=== PATIENT | female | born 2000 | race Caucasian/White ===

== ENCOUNTER 2025-01-20 22:02 | Emergency (ER) | payer SELFPAY ==
[2025-01-20] MEDS ORDERED: ONDANSETRON 4 MG/2 ML VIAL ONE (23:10)
[2025-01-20] MEDS ORDERED: FAMOTIDINE 20 MG/2 ML VIAL IV ONE (23:10)
[2025-01-20] MEDS ORDERED: NA CHLORIDE 0.9% 3,000 ML ONE (23:11)
[2025-01-20 23:22] LABS: Absolute Lymphocytes (CBC) 4.3 K/uL (0.7-4.9); Hematocrit 39.0 % (36.0-45.0); Hemoglobin 12.9 g/dL (12.0-15.0); MCH 27.5 pg (27.0-35.0); MCHC 33.2 g/dL (32.0-36.0); MCV 83.0 fL (80-100); MPV 9.8 fL (7.6-11.3); Nucleated RBC Absolute Count 0.0 (0-0); Nucleated Red Blood Cells % 0.1 % (0-0); RBC Red Blood Cell Count 4.70 M/uL (3.86-4.86); White Blood Count 7.80 thou/uL (4.3-10.9)
[2025-01-20 23:24] LABS: PT Prothrombin Time 15.9 SECONDS (10-13.0); PTT, Activated Partial Thromb 33.0 SECONDS (27.2-37.4); Protime INR 1.42
[2025-01-20 23:36] LABS: ALT/SGPT 57 U/L (13-56); AST/SGOT 36 U/L (15-37); Albumin 3.2 g/dL (3.4-5.0); Albumin/Globulin Ratio 0.8 (1.1-1.8); Alkaline Phosphatase 68 U/L (45-117); Anion Gap 11.7 mEq/L (5.0-15.0); BUN Blood Urea Nitrogen 6 mg/dL (7-18); Globulin 4.2 g/dL (2.3-3.5); Glucose Level 106 mg/dL (74-106); NT PRO-BNP 13 pg/mL (<125); Potassium 3.7 mEq/L (3.5-5.1)
[2025-01-20 23:40] LABS: Influenza A Ag Negative; Influenza B Ag Negative; SARS-CoV-2 Antigen Rapid Res Negative (Negative)
[2025-01-20 23:44] LABS: Troponin High Sensitivity < 3.0 pg/mL (<58.9)
[2025-01-21 00:14] LABS: Differential Total Cells Count 100; Segmented Neutrophils 16 % (40-80)
[2025-01-21 00:15] LABS: Blood Morphology Comment NOT SEEN (NOT SEEN)
--- NOTE | 2025-01-21 01:10 | RAD REPORT ---
CLINICAL HISTORY: Abdominal pain. COMPARISON: None. TECHNIQUE: CT ABDOMEN PELVIS WITH IV CONTRAST on 01/20/2025 11:18 PM CDT This exam was performed according to our departmental dose-optimization program, which includes autom ated exposure control, adjustment of the mA and/or kV according to patient size and/or use of iterative reconstruction technique. FINDINGS: Lower lungs are clear. Abdomen: The liver is normal in appearance. There is no biliary dilatation. Gallbladder is normal in appearance. Spleen is enlarged at at least 15.4 cm. Pancreas is unremarkable. The adrenal glands and kidneys are unremarkable. Abdominal aorta is normal in course and caliber without aneurysm. There is no free air. There is no r etroperitoneal adenopathy. Pelvis: There is no bowel obstruction. Urinary bladder is unremarkable. There is no free fluid. Uteru s is normal in size. Appendix is normal. Skeleton: There are no acute osseous findings. No suspicious bony lesions. IMPRESSION: Splenomegaly. No acute inflammatory process. Electronically signed by: Bran Alamo MD 01/21/2025 12:54 AM CDT RP Due to temporary technical issues with the PACS/GetO2 reporting system, reports are being kylah d by the in-house radiologist without review as a courtesy to ensure prompt reporting the interpreting radiologist is fully responsible for the content of the report. Transcribed Date/Time: 01/21/2025 1:10 AM
[2025-01-21 01:41] LABS: Urine Culture Reflex Order NOT NEEDED; Urine Microscopic Reflex YN ORDER UMIC
--- NOTE | 2025-01-21 02:07 | EDPHYS ---
Physician Documentation [facility] Name: Robyn Chen Age: 24 yrs Sex: Female : 2000 Arrival Date: 01/20/2025 Time: 22:02 Bed 20 Private MD: ED Physician Brandon Morales HPI: 01/20 22:45 This 24 yrs old Female presents to ER via Ambulatory with complaints of Nausea/Vomiting.cp 22:45 The patient presents to the emergency department with nausea, that is moderate, cp vomiting, that is continuous, abdominal pain, of the mid abdomen. Onset: The symptoms/episode began/occurred 2 week(s) ago. 22:45 Possible causes: unknown. cp 22:45 Associated signs and symptoms: Pertinent positives: cough, 2 episodes of diarrhea. cp Severity of symptoms: in the emergency department the symptoms are unchanged despite home interventions. 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 - Infectious Disease History:: Denies. - Social history:: Smoking status: Patient denies any tobacco usage or history of. Patient/guardian denies using alcohol, street drugs. ROS: 22:50 Constitutional: Positive for body aches, fever, poor PO intake, cp 22:50 Eyes: Negative for injury, pain, redness, and discharge, cp 22:50 ENT: Negative for drainage from ear(s), ear pain, sore throat, difficulty swallowing, difficulty handling secretions, 22:50 Respiratory: Negative for cough, shortness of breath, wheezing, 22:50 Abdomen/GI: Positive for abdominal pain, nausea and vomiting, anorexia, Negative for diarrhea, constipation, hematemesis, 22:50 Skin: Negative for cellulitis, rash, 22:50 Neuro: Negative for altered mental status, cp 22:50 All other systems are negative, cp Exam: 22:55 Constitutional: The patient appears in no acute distress, alert, awake, cp non-diaphoretic, non-toxic, well developed, well nourished, obese, uncomfortable, 22:55 Head/Face: Normocephalic, atraumatic. cp 22:55 Eyes: Periorbital structures: appear normal, Conjunctiva: normal, no exudate, no injection, Sclera: no appreciated abnormality, Lids and lashes: appear normal, bilaterally, 22:55 ENT: External ear(s): are unremarkable, Nose: is normal, Mouth: Lips: moist, Oral mucosa: moist, Posterior pharynx: Airway: no evidence of obstruction, patent, Tonsils: surgically absent, erythema, that is mild, exudate, is not appreciated, Voice: is normal, 22:55 Neck: ROM/movement: Meningeal signs: are not present, nuchal rigidity, is not appreciated, 22:55 Chest/axilla: Inspection: normal, 22:55 Cardiovascular: Rate: tachycardic, Rhythm: regular, 22:55 Respiratory: the patient does not display signs of respiratory distress, Respirations: normal, no use of accessory muscles, no retractions, labored breathing, is not present, Breath sounds: are clear throughout, no decreased breath sounds, no stridor, no wheezing, 22:55 Abdomen/GI: Inspection: obese Bowel sounds: active, all quadrants, Palpation: soft, in all quadrants, moderate abdominal tenderness, in the epigastric area, 23:27 ECG was reviewed by the Attending Physician. cp Vital Signs: 22:29 BP 86 / 45; Pulse 118; Resp 19 S; Temp 103(O); Pulse Ox 98% on R/A; Weight 95.25 kg lg3 (R); Height 5 ft. 0 in. (R); 23:27 BP 106 / 73; Pulse 105; Resp 20; Pulse Ox 98% on R/A; kj2 23:46 BP 102 / 75; Pulse 101; Resp 20; Pulse Ox 100% on R/A; kj2 01/21 00:40 BP 102 / 63; Pulse 100; Resp 19 S; Pulse Ox 99% on R/A; lg3 02:07 BP 92 / 57; Pulse 95; Resp 16; Temp 97.9; Pulse Ox 97% ; ts3 01/20 22:29 Body Mass Index 41.01 (95.25 kg, 152.4 cm) lg3 MDM: 01/20 22:28 Medical Screening Exam initiated cp 23:00 Differential diagnosis: gastritis, cholecystitis, appendicitis, viral gastroenteritis, cp gastroenteritis, sepsis, colitis. 01/21 00:35 ED course: awaiting urine results and results CT abdomen/pelvis for source of cp infection. 30 cc/kg fluid bolus given and HR improved, blood pressure improved. Patient positive for [place], current source of fever and infection. Will hold antibiotics until urine and CT results. 01:53 Data reviewed: vital signs, nurses notes, lab test result(s), EKG, radiologic studies, cp CT scan, plain films. I considered the following discharge prescriptions or medication management in the emergency department Medications were administered in the Emergency Department. See MAR. Independent interpretation of the following test(s) in the Emergency Department EKG: See my EKG interpretation above. Response to treatment: the patient's symptoms have markedly improved after treatment, nausea markedly improved and vomiting resolved. 01:53 Counseling: I had a detailed discussion with the patient and/or guardian regarding the cp historical points, exam findings, and any diagnostic results supporting the discharge/admit diagnosis, lab results, radiology results, to return to the emergency department if symptoms worsen or persist or if there are any questions or concerns that arise at home. 01/20 22:40 Order name: BNP; Complete Time: 23:58 cp 01/20 22:40 Order name: Blood Culture Adult (2) cp 01/20 22:40 Order name: CBC with Diff; Complete Time: 00:31 cp 01/20 23:58 Interpretation: Normal except: SOPHIE% 38.6; LYM% 55.2. cp 01/20 22:40 Order name: CMP; Complete Time: 23:58 01/20 23:59 Interpretation: Normal except: NA 132; BUN 6; GFR 79; ALT 57; ALB 3.2; GLOB 4.2; A/G cp 0.8. 01/20 22:40 Order name: Lactate w/ 2H reflex if indic.; Complete Time: 23:58 cp 01/20 22:40 Order name: Protime (+inr); Complete Time: 23:58 cp 01/20 22:40 Order name: Ptt, Activated; Complete Time: 23:58 cp 01/20 22:40 Order name: Troponin HS; Complete Time: 23:58 cp 01/20 22:40 Order name: COVID-19 Ag + Flu A+B Ag; Complete Time: 23:58 01/20 22:40 Order name: [place] Screen Profile; Complete Time: 23:58 01/20 23:59 Interpretation: Reviewed. 01/20 22:40 Order name: UA Rfx Truman Cult if indicated; Complete Time: 01:49 01/21 01:49 Interpretation: Normal except: Urine SG > 1.030; UKET 4+; UPROT TRACE; UNIT 2+. 01/20 22:40 Order name: Test, Serum; Complete Time: 23:58 01/20 23:28 Order name: Manual Differential; Complete Time: 00:31 EDMS 01/21 00:06 Order name: Glucose, Ancillary Testing; Complete Time: 00:31 EDMS 01/21 00:08 Order name: Glucose, Ancillary Testing EDMD 01/20 22:40 Order name: Chest Single View XRAY 01/20 23:18 Order name: CT Abd/Pelvis - IV Contrast Only 01/21 01:39 Interpretation: Report reviewed. 01/20 22:40 Order name: Accucheck; Complete Time: 23:55 01/20 22:40 Order name: Cardiac monitoring; Complete Time: 23:24 01/20 22:40 Order name: EKG - Nurse/Tech; Complete Time: 23:24 01/20 22:40 Order name: IV Saline Lock - Large Bore; Complete Time: 23:12 01/20 22:40 Order name: Labs collected and sent; Complete Time: 23:02 01/20 22:40 Order name: O2 Per Protocol; Complete Time: 23:02 01/20 22:40 Order name: O2 Sat Monitoring; Complete Time: 23:02 01/20 22:40 Order name: Vital Signs; Complete Time: 23:02 01/21 01:40 Order name: PO challenge; Complete Time: 02:06 cp EC/13 23:27 Rate is 108 beats/min. Rhythm is regular. AL interval is normal. QRS interval is cp normal. QT interval is normal. T waves are Inverted in lead aVR. Interpreted by me. Reviewed by me. Administered Medications: 23:23 Drug: Famotidine IVP 20 mg IVP once; dilute with 10 mL 0.9% NaCl; give over 2 minutes kj2 Route: IVP; Site: left antecubital; 01/21 00:42 Follow up: Response: No adverse reaction lg3 01/20 23:24 Drug: NS 0.9% IV (30 ml/kg) 30 ml/kg IV at bolus once; Sepsis Protocol; to be given as kj2 a bolus over 90 minutes Route: IV; Rate: bolus; Site: left antecubital; 01/21 02:20 Follow up: Response: No adverse reaction; IV Status: Completed infusion; IV Intake: lg3 2860ml 01/20 23:24 Drug: Ondansetron IVP 4 mg IVP once; over 2 minutes Route: IVP; Site: left antecubital; kj2 01/21 00:42 Follow up: Response: No adverse reaction lg3 Disposition: 05:45 Co-signature as Attending Physician, Brandon Morales MD I reviewed the patient's care rn provided by the Advanced Practice Provider and agree with the diagnosis and treatment plan. Disposition Summary: 01/21/25 02:06 Discharge Ordered Notes: Location: Home cp Problem: new cp Symptoms: have improved cp Condition: Stable cp Diagnosis - Nausea with vomiting, unspecified cp - Infectious mononucleosis, unspecified with other complication cp - Splenomegaly, not elsewhere classified cp - Fever presenting with conditions classified elsewhere cp Followup: cp - With: Private Physician - When: 2 - 3 days - Reason: Worsening of condition Discharge Instructions: - Discharge Summary Sheet cp - Fever, Adult cp - Infectious Mononucleosis cp - Nausea and Vomiting, Adult cp - Enlarged Spleen cp Forms: - Medication Reconciliation Form cp - Antibiotic Education cp - Prescription Opioid Use cp - Patient Portal Instructions cp - Leadership Thank You Letter cp Prescriptions: - Reglan 10 mg Oral Tablet - take 1 tablet ORAL route every 6 hours take 30 minutes before meals and at cp bedtime; 20 tablet; Refills: 0, Product Selection Permitted Signatures: Dispatcher [employer] Brandon Rivera MD MD rn Page, Corey, PA PA cp Able, Lacie, RN RN lg3 Jaci Soler RN RN kj2 Corrections: (The following items were deleted from the chart) 01/20 22:41 22:41 PROBNP+C.LAB.BRZ ordered. EDMS EDMS 22:41 22:41 BLOOD CULTURE*+BA.LAB.BRZ ordered. EDMS EDMS 22:41 22:41 CBC+H.LAB.BRZ ordered. EDMS EDMS 22: 22:41 COMPREHENSIVE METABOLIC PANEL+C.LAB.BRZ ordered. EDMS EDMS 22:41 22:41 LACTATE+C.LAB.BRZ ordered. EDMS EDMS 22:41 22:41 PROTIME (+INR)+COAG.LAB.BRZ ordered. EDMS EDMS 22:41 22:41 PTT, ACTIVATED+COAG.LAB.BRZ ordered. EDMS EDMS 22:41 22:41 Troponin High Sensitivity+C.LAB.BRZ ordered. EDMS EDMS 22:41 22:41 COVID-19 Ag + Flu A+B Ag+I.LAB.BRZ ordered. EDMS EDMS 22:41 22:41 MONO SCREEN PROFILE+I.LAB.BRZ ordered. EDMS EDMS 22: 22:41 UA Rfx Truman Cult if indicated+U.LAB.BRZ ordered. EDMS EDMS 22:41 22:41 TEST, SERUM+SC.LAB.BRZ ordered. EDMS EDMS 22:41 22:41 Chest Single View+RAD.RAD.BRZ ordered. EDMS EDMS 23:19 23:19 Abdomen Pelvis W Con+CT.RAD.BRZ ordered. EDMS EDMS 01/21 00:55 00:35 ED course: awaiting urine results and results CT abdomen/pelvis for source of cp infection. 30 cc/kg fluid bolus given and HR improved, blood pressure improved. Patient positive for [place]. cp 01:57 01:57 Constitutional: The patient appears in no acute distress, alert, cp cp
--- NOTE | 2025-01-21 02:07 | ER ---
Nurse's Notes [facility] Name: Robyn Chen Age: 24 yrs Sex: Female : 2000 Arrival Date: 01/20/2025 Time: 22:02 Bed 20 Private MD: Diagnosis: Nausea with vomiting, unspecified;Infectious mononucleosis, unspecified with other complication;Splenomegaly, not elsewhere classified;Fever presenting with conditions classified elsewhere Presentation: 01/20 22:29 Chief complaint: Patient states: vomiting, abdominal pain, diarrhea X2 episodes, lg3 weakness, cough X2 weeks. Coronavirus screen: Client denies travel out of the [place] in the last 14 days. Ebola Screen: No symptoms or risks identified at this time. Initial Sepsis Screen: Does the patient meet any 2 criteria? Temp <36.0*C (96.8*F)) or > 38.3*C (100.9*F). HR > 90 bpm. Yes Does the patient have a suspected source of infection? No. Patient's initial sepsis screen is negative. Risk Assessment: Do you want to hurt yourself or someone else? Patient reports no desire to harm self or others. Onset of symptoms is unknown. 22:29 Method Of Arrival: Ambulatory lg3 22:29 Acuity: ELIAN 2 lg3 Triage Assessment: 22:32 General: Appears in no apparent distress. uncomfortable, ill, Behavior is calm, lg3 cooperative. Pain: Complains of pain in abdomen. EENT: No deficits noted. No signs and/or symptoms were reported regarding the EENT system. Neuro: No deficits noted. Sarmiento Agitation-Sedation Scale (RASS): 0 - Alert and Calm Level of Consciousness is awake, alert, obeys commands, Oriented to person, place, time, situation. Cardiovascular: No deficits noted. Denies chest pain, shortness of breath, Capillary refill < 3 seconds Clubbing of nail beds is absent JVD is absent Patient's skin is warm and dry. Respiratory: No deficits noted. Airway is patent Respiratory effort is even, unlabored, Respiratory pattern is regular, symmetrical. GI: Abdomen is round non-distended, obese, Bowel sounds present X 4 quads. Abd is soft X 4 quads Abdomen is tender to palpation in umbilical area, right upper quadrant and left upper quadrant Reports lower abdominal pain, upper abdominal pain, cramping, intolerance of fluids, intolerance of food, nausea, vomiting. : No signs and/or symptoms were reported regarding the genitourinary system. Derm: No deficits noted. No signs and/or symptoms reported regarding the dermatologic system. Skin is intact, is healthy with good turgor, Skin is dry, Skin is normal, Skin temperature is warm. Musculoskeletal: Circulation, motion, and sensation intact. Range of motion: intact in all extremities, Reports generalized weakness. 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 - Infectious Disease History:: Denies. - Social history:: Smoking status: Patient denies any tobacco usage or history of. Patient/guardian denies using alcohol, street drugs. Screenin:50 [facility] ED Fall Risk Assessment (Adult) Confusion or Disorientation No (0 pts) kj2 Intoxicated or Sedated No (0 pts) Impaired Gait No (0 pts) Mobility Assist Device Used No (0 pt) Altered Elimination No (0 pt) Score/Fall Risk Level 0 - 2 = Low Risk Maintained a safe environment, Hourly rounding (assess needs \T\ fall precautionary measures) done. 23:03 [facility] ED Fall Risk Assessment (Adult) History of falling in the last 3 months, ha1 including since admission. Abuse screen: Denies threats or abuse. Denies injuries from another. Nutritional screening: No deficits noted. Tuberculosis screening: No symptoms or risk factors identified. Assessment: 22:50 General: Appears in no apparent distress. distressed, Behavior is cooperative. Pain: kj2 Complains of pain in left upper quadrant and right upper quadrant and abdomen Pain currently is 7 out of 10 on a pain scale. Neuro: Level of Consciousness is awake, alert, obeys commands, Oriented to person, place, time, situation. Cardiovascular: Respiratory: Airway is patent Respiratory effort is unlabored. GI: Reports nausea, vomiting, since this morning. : No signs and/or symptoms were reported regarding the genitourinary system. 23:46 Reassessment: Patient appears in no apparent distress at this time. Patient and/or kj2 family updated on plan of care and expected duration. Pain level reassessed. Patient is alert, oriented x 3, equal unlabored respirations, skin warm/dry/pink. 01/21 00:21 Reassessment: report given to SEAN Fontenot. kj2 00:40 General: Appears in no apparent distress. comfortable, Behavior is calm, cooperative. lg3 Pain: Complains of pain in abdomen Pain currently is 3 out of 10 on a pain scale. Neuro: No deficits noted. Sarmiento Agitation-Sedation Scale (RASS): 0 - Alert and Calm Level of Consciousness is awake, alert, obeys commands, Oriented to person, place, time, situation. Cardiovascular: No deficits noted. Denies chest pain, shortness of breath, Capillary refill < 3 seconds Clubbing of nail beds is absent JVD is absent Patient's skin is warm and dry. Respiratory: No deficits noted. Airway is patent Respiratory effort is even, unlabored, Respiratory pattern is regular, symmetrical. GI: Abdomen is round non-distended, Bowel sounds present X 4 quads. : No signs and/or symptoms were reported regarding the genitourinary system. EENT: No deficits noted. No signs and/or symptoms were reported regarding the EENT system. Derm: No deficits noted. No signs and/or symptoms reported regarding the dermatologic system. Skin is intact, is healthy with good turgor, Skin is dry, Skin is normal, Skin temperature is warm. Musculoskeletal: No deficits noted. No signs and/or symptoms reported regarding the musculoskeletal system. Circulation, motion, and sensation intact. Range of motion: intact in all extremities. 02:18 Reassessment: Patient appears in no apparent distress at this time. No changes from lg3 previously documented assessment. Patient and/or family updated on plan of care and expected duration. Pain level reassessed. Patient is alert, oriented x 3, equal unlabored respirations, skin warm/dry/pink. Patient states feeling better. Patient states symptoms have improved. Vital Signs: 01/20 22:29 BP 86 / 45; Pulse 118; Resp 19 S; Temp 103(O); Pulse Ox 98% on R/A; Weight 95.25 kg lg3 (R); Height 5 ft. 0 in. (R); 23:27 BP 106 / 73; Pulse 105; Resp 20; Pulse Ox 98% on R/A; kj2 23:46 BP 102 / 75; Pulse 101; Resp 20; Pulse Ox 100% on R/A; kj2 01/21 00:40 BP 102 / 63; Pulse 100; Resp 19 S; Pulse Ox 99% on R/A; lg3 02:07 BP 92 / 57; Pulse 95; Resp 16; Temp 97.9; Pulse Ox 97% ; ts3 01/20 22:29 Body Mass Index 41.01 (95.25 kg, 152.4 cm) lg3 ED Course: 01/20 22:03 Patient arrived in ED. jj6 22:19 Davide Nugent PA is PHCP. cp 22:19 Brandon Morales MD is Attending Physician. cp 22:32 Triage completed. lg3 22:32 Arm band placed on left wrist. lg3 22:44 Jaci Soler RN is Primary Nurse. kj2 22:50 Patient has correct armband on for positive identification. Bed in low position. Call kj2 light in reach. Adult w/ patient. Provided Education on: call light. 23:02 BNP Sent. ha1 23:02 Blood Culture Adult (2) Sent. ha1 23:02 CBC with Diff Sent. ha1 23:02 CMP Sent. ha1 23:02 Lactate w/ 2H reflex if indic. Sent. ha1 23:02 Protime (+inr) Sent. ha1 23:02 Ptt, Activated Sent. ha1 23:02 Troponin HS Sent. ha1 23:03 Inserted saline lock: 20 gauge in left antecubital area, using aseptic technique. Blood ha1 collected. Flushed with 10 mL NS. 23:25 EKG done, by dish technician. ts3 23:26 Initial lab(s) drawn, by senior label specialist, sent to lab. ts3 23:40 Chest Single View XRAY In Process Unspecified. EDMS 01/21 00:09 CT Abd/Pelvis - IV Contrast Only In Process Unspecified. EDMS 00:10 Report received from SEAN Beatty. lg3 01:03 Urine collected: clean catch specimen, sent to lab. ts3 02:18 Glucose, Ancillary Testing Sent. lg3 02:58 No provider procedures requiring assistance completed. IV discontinued, intact, lg3 bleeding controlled, No redness/swelling at site. Pressure dressing applied. Administered Medications: 01/20 23:23 Drug: Famotidine IVP 20 mg IVP once; dilute with 10 mL 0.9% NaCl; give over 2 minutes kj2 Route: IVP; Site: left antecubital; 01/21 00:42 Follow up: Response: No adverse reaction lg3 01/20 23:24 Drug: NS 0.9% IV (30 ml/kg) 30 ml/kg IV at bolus once; Sepsis Protocol; to be given as kj2 a bolus over 90 minutes Route: IV; Rate: bolus; Site: left antecubital; 01/21 02:20 Follow up: Response: No adverse reaction; IV Status: Completed infusion; IV Intake: lg3 2860ml 01/20 23:24 Drug: Ondansetron IVP 4 mg IVP once; over 2 minutes Route: IVP; Site: left antecubital; kj2 01/21 00:42 Follow up: Response: No adverse reaction lg3 Medication: 02:58 VIS not applicable for this client. lg3 Intake: 02:20 IV: 2860ml; Total: 2860ml. lg3 Outcome: 02:06 Discharge ordered by MD. cp 02:58 Discharged to home ambulatory, with family, lg3 02:58 Condition: stable 02:58 Discharge instructions given to patient, Instructed on discharge instructions, follow up and referral plans. medication usage, Demonstrated understanding of instructions, follow-up care, medications, Prescriptions given X 1, 02:58 Patient left the ED. lg3 Signatures: Dispatcher [employer] EDMS Davide Nugent PA PA cp Able, Lacie RN RN lg3 Queenie Rosas jj6 Pooja Pinedo RN RN ha1 Jaci Soler RN RN kj2 Alejandra Valentine ts3 Corrections: (The following items were deleted from the chart) 01/20 22:35 22:29 BP 91 / 65; Pulse 118bpm; Resp 19bpm; Spontaneous; Pulse Ox 98% RA; Temp 103F lg3 Oral; 95.25 kg Reported; Height 5 ft. 0 in. Reported; BMI: 41.0; lg3
[2025-01-21 03:09] VITALS: BP 92/57; TEMP 97.9; O2SAT 97
--- NOTE | 2025-01-21 06:07 | RAD REPORT ---
CLINICAL HISTORY: Vomiting. COMPARISON: None. TECHNIQUE: XR CHEST 1 VIEW 01/20/2025 10:40 PM CDT FINDINGS: Cardiac silhouette is normal in size. Lungs are clear without consolidation, atelectasis, mass or wes ma. There is no pleural effusion. There is no pneumothorax. There are no acute osseous findings. IMPRESSION: Clear lungs. Electronically signed by: Bran Alamo MD 01/21/2025 12:51 AM CDT RP Due to temporary technical issues with the PACS/[employer] reporting system, reports are being kylah d by the in-house radiologist without review as a courtesy to ensure prompt reporting the interpreting radiologist is fully responsible for the content of the report. Transcribed Date/Time: 01/21/2025 6:07 AM
== END 2025-01-21 02:58 | disposition home or self-care (01) ==
LOC: ER 22:02
DX: B27.99 Infectious mononucleosis, unspecified with other complication (principal); R16.1 Splenomegaly, not elsewhere classified; R50.9 Fever, unspecified
CPT/HCPCS: 36415; 71045; 74177; 80053; 81001; 82947; 83605; 83880; 84484; 84703; 85025; 85610; 85730; 86308; 87040; 87428; 93005; 96365; 96366; 96375; 99284; J2405; J7030; Q9967